=== PATIENT | male | born 1960 | race Caucasian/White ===

== ENCOUNTER 2022-12-18 07:02 | Emergency (ER) | payer BC, OTHER ==
[~2022-12-18] VITALS: Ht 167.6 cm; Wt 65.0 kg
[~2022-12-18 07:02] MED LIST: BISA-155 PO; ONDA8TAB6 PO
[2022-12-18] MEDS ORDERED: ketorolac trometh inj. 60 MG/2 ML VIAL IM ONE (07:10)
[2022-12-18] MEDS ORDERED: ondansetron 4mg rapidly disintigrating tab PO ONE (07:10)
[2022-12-18] MEDS ORDERED: HYDROcodone/acetaminophen 5mg/325mg tablet PO ONE (07:10)
[2022-12-18] MEDS ORDERED: HYDR-3965 PO (08:01)
[2022-12-18 08:05] VITALS: BP 129/94
== END 2022-12-18 08:22 | disposition home or self-care (01) ==
LOC: ER 07:03
DX: S42.002A Fracture of unspecified part of left clavicle, initial encounter for closed fracture (principal); Z87.442 Personal history of urinary calculi; Z79.899 Other long term (current) drug therapy; V87.7XXA Person injured in collision between other specified motor vehicles (traffic), initial encounter; Y93.89 Activity, other specified; Y92.488 Other paved roadways as the place of occurrence of the external cause; Y99.8 Other external cause status
CPT/HCPCS: 73030; 93005; 96372; 99283; J1885; A4565